=== PATIENT | female | born 1985 | race Caucasian/White ===

== ENCOUNTER 2024-02-27 22:58 | Emergency (ER) | payer BC, SELFPAY ==
[2024-02-27 23:19] VITALS: BP 153/94
--- NOTE | 2024-02-27 23:28 | ED.GENMED ---
History of Present Illness
General
Chief Complaint: Problems
Source: patient
Exam Limitations: none
Time Seen by Provider: 02/27/24 23:24
Nursing documentation reviewed up to this point in time: agreed with
Travel History
Have you had any contact with someone who has COVID-19?: Unable to Answer
Do you have any symptoms of coronavirus? Fever > 100 degrees, chills, cough, shortness of breath, sore throat, loss of taste or smell, muscle aches, or headache?: No
History of Present Illness
History of Present Illness:
The patient is a 38-year-old female who reports that she is 22 weeks and went into [place] at a [facility] this afternoon for an elective . The patient reports that ' they put sticks and gauze in her cervix and left
them in there.' She reports that they also gave her a pill prior to her going home. She reports that she is due to see them tomorrow morning for the rest of the procedure. In the meantime, patient reports severe contractions and pain. She
reports that they gave her some kind of Tylenol prescription but it is not adequate to control her pain. Patient is also had mild vaginal bleeding. Patient reports this is her second elective . This is her second .
Past History
Past History
ED Past Medical History: Other (ADHD)
ED Past Surgical History: Other
Social History
Tobacco: Other
Alcohol: Other
Drug: None
Personal: Single
Living: with family
Employment: Other
Family History
Family History: Other
Review of Systems
Review of Systems
Allergies reviewed?: Yes
All Other Systems: ROS reviewed and negative except as documented in HPI and ROS
Constitutional: Reports no symptoms
EENT: Reports no symptoms
Respiratory: Reports no symptoms
Cardiac: Reports no symptoms
ABD/GI: Reports no symptoms
: Reports bleeding
Musculoskeletal: Reports no symptoms
Skin: Reports no symptoms
Neurological: Reports no symptoms
Endocrine: Reports no symptoms
Hematologic/Lymphatic: Reports no symptoms
Psychiatric: Reports no symptoms
Phy Exam
Physical Exam
Physical Exam:
Physical Exam
General: Patient appears uncomfortable
Neck: supple.
Heart: s1/s2 regular rate and rhythm,
Lungs: no acute respiratory distress. clear bilaterally
Abdomen: Soft. Gravid. Mild bleeding from vaginal area. No evidence of passage of tissue at this time
Neuro: alert and oriented. no focal neurological deficits
Skin: no rash
Psychiatric: well kept. interactive and cooperative
Extremities: no edema. no calf tenderness. negative homans. good distal pulses
Course
Orders/Labs/Results
Orders:
Orders
02/27/24 23:33
HYDROmorphone [Dilaudid] 0.5 mg IV NOW STA
02/28/24 02:31
Ketorolac [Toradol] 30 mg IV NOW STA
02/28/24 02:32
HYDROmorphone [Dilaudid] 1 mg PO NOW STA
Vital Signs
Initial and Last Documented VS:
Initial Vital Signs
Temp Pulse Resp BP Pulse Ox
98.1 F 95 28 153/94 100
02/27/24 23:19 02/27/24 23:19 02/27/24 23:19 02/27/24 23:19 02/27/24 23:19
Last Documented Vital Signs
Temp Pulse Resp BP Pulse Ox
98.1 F 76 14 135/66 99
02/27/24 23:19 02/28/24 02:12 02/28/24 02:12 02/28/24 02:12 02/28/24 02:12
Information
Weeks gestation: Weeks: (22)
Location: Location: (reported [facility])
MDM/Problems Addressed
Differential Diagnosis Includes:
Active contractions from incomplete , endometritis, UTI
MDM/Problems Addressed:
Patient presents with acute pelvic pain and contractions
*Pulse Oximetry
Patient hypoxic: no
*EKG
Interpreted by ED Provider?: NA
*[employer]ician Interpretation
Rate: normal
Interpretation: normal
Rhythm: sinus
*Critical Care Note
Total Time (30-74mins, 75-104mins- exclusive of procedures): Not Applicable
Data Reviewed
Source: patient and family (Mother)
Patient Management
Social determinants of health affecting care: Living situation and Strong social support
Discussion with other providers: Other (Case discussed with Dr. Benson from [employer] who suggest that we treat patient's pain and encouraged her to follow through with her appointment in the morning)
Escalation/DeEscalation of care consider admission/obs:
Patient is much more comfortable with IV Dilaudid. The patient is comfortable going home with her mother who will help her get to her appointment later this morning for the next procedure involving her elective
ED Attending Note
-
Portions of this chart may have been created with voice recognition software.� Occasional wrong word or��sound alike� substitutions may have occurred due to the inherent limitations of voice recognition software.
Discharge Plan
Departure
Patient Disposition: Home (Routine Discharge)
Date of Disposition: 02/28/24
Time of Disposition: 02:32
Patient with high blood pressure during this ER visit?: Yes
Condition: Good
Covid-19: Not Applicable
Discharge Problem:
Incomplete
Instructions: , BLOOD PRESSURE
Referrals:
UNKNOWN,NO INTERVIEW [Family Provider] -
Activity Restrictions/Additional Instructions:
Please proceed with your appointment as scheduled this morning with your ground host/hostess.
Interventions
Interventions:
*Risk Screen - Suicide Last Done: 02/27/24 23:47
*Neglect/Abuse Screening Last Done: 02/27/24 23:47
ED- Fall Risk Assessment Last Done: 02/28/24 03:02
*Nursing Disposition Last Done: 02/28/24 03:02
ED-Female Genitourinary Assessment Last Done: 02/27/24 23:47
Discharge Date and Time
Discharge Date/Time: 02/28/24 03:02
Print Language: KENYAN
[2024-02-27] MEDS: DILAUDID 0.5 MG IV (23:42)
[2024-02-28 02:12] VITALS: BP 135/66
[2024-02-28] MEDS: TORADOL 30 MG IV (02:54)
[2024-02-28] MEDS: DILAUDID 1 MG PO (02:54)
== END 2024-02-28 03:02 | disposition home or self-care (01) ==
LOC: EMR 22:58
PROVIDERS: EMERGENCY PHYSICIAN Emergency Medicine
DX: O03.4 Incomplete spontaneous abortion without complication (principal); Z3A.22 22 weeks gestation of pregnancy
CPT/HCPCS: 99282